=== PATIENT | male | born 1970 | race African-American/Black ===

== ENCOUNTER 2021-12-28 08:39 | Inpatient (IN) | payer SELFPAY ==
[2021-12-28] MEDS ORDERED: Morphine 4 MG/ML VIAL ONE (09:10)
[2021-12-28] MEDS ORDERED: Ondansetron PF 4 MG/2 ML Vial ONE (09:10)
[2021-12-28] MEDS ORDERED: Ketorolac Tromethamine 30 MG/ML VIAL ONE (09:11)
[2021-12-28] MEDS ORDERED: Piperacillin/Tazobactam 4.5 GM VIAL ONE (09:11)
[2021-12-28 09:40] LABS: INR-International Normal Ratio 1.1; PTT 26.8 sec (22.0-33.0); Prothrombin Time 11.5 sec (9.5-12.1)
[2021-12-28 09:45] LABS: ALT (SGPT) 11 U/L (8-55); AST (SGOT) 16 U/L (5-34); Albumin 4.1 g/dL (3.5-5.0); Alkaline Phosphatase 105 U/L (40-110); Anion Gap 15 mmol/L (10-20); BUN (Urea Nitrogen) 19 mg/dL (8.4-25.7); Bilirubin, Total 1.1 mg/dL (0.2-1.2); Calc. Creatinine Clearance 0 mL/min (70-130); Calcium 9.4 mg/dL (7.8-10.44); Carbon Dioxide 25 mmol/L (22-29); Chloride 92 mmol/L (98-107); Estimated GFR 75; Globulin 4.3 g/dL (2.4-3.5); Glucose 440 mg/dL (70-105); Potassium 4.4 mmol/L (3.5-5.1); Protein, Total 8.4 g/dL (6.0-8.3); Sodium 128 mmol/L (136-145)
[2021-12-28 10:13] LABS: #Monocytes 0.9 10x3/uL (0.0-1.1); #Neutrophils 8.5 10x3/uL (1.5-8.4); %Basophils 0.3 % (0.0-2.0); %Eosinophils 0.2 % (0.0-6.0); %Lymphocytes 16.2 % (18.0-47.0); %Monocytes 7.7 % (0.0-10.0); %Neutrophils 75.2 % (40.0-75.0); Hemoglobin 13.5 g/dL (13.5-17.5); Mean Corpuscular HGB CONC 34.6 g/dL (32.0-36.0); Mean Corpuscular Hemoglobin 25.8 pg (27.0-33.0); Mean Corpuscular Volume 74.4 fl (81.2-95.1); Mean Platelet Volume 10.5 fl (7.4-10.4); Platelet Count 265 10x3/uL (150-450); RBC Distribution Width 12.7 % (11.5-14.5); Red Blood Cell (RBC) Count 5.24 10x6/uL (4.32-5.72); White Blood Cell (WBC) Count 11.3 10x3/uL (3.5-10.5)
[2021-12-28] MEDS ORDERED: Insulin Regular 300 UNITS/3 ML VIAL SC SCH (11:00)
[2021-12-28] MEDS ORDERED: Dextrose 50% Abboject 50 ML SYRINGE SLOW IVP PRN (11:13)
[2021-12-28] MEDS ORDERED: Dextrose 5% in Water 1,000 ML IV PRN (11:13)
[2021-12-28] MEDS ORDERED: Ondansetron PF 4 MG/2 ML Vial IVP PRN (11:13)
[2021-12-28 11:52] LABS: Cardiac Risk 4.8 (Less than 4.5)
[2021-12-28] MEDS ORDERED: Enoxaparin Sodium 40 MG/0.4 ML SYRINGE SC SCH (12:15)
[2021-12-28] MEDS ORDERED: Amlodipine 5 MG TAB PO SCH (12:15)
[2021-12-28] MEDS: HumaLOG 300 UNITS/3 ML VIAL SC SCH ×2 (15:01→17:03)
[2021-12-28 15:24] VITALS: BMI 26.4
[2021-12-28] MEDS: HYDROcodone/Acetaminophen 5/325 mg Tablet PO PRN (16:48)
[2021-12-28] MEDS: Piperacillin/Tazobactam 3.375 GM in Sodium Chloride 0.9% 100 ML IVPB SCH (16:48)
[2021-12-28] MEDS: HumaLOG 300 UNITS/3 ML VIAL SC PRN (16:49)
[2021-12-28] MEDS ORDERED: FLU VACC QS2022-23(6MOS UP)/PF 60 MCG/0.5 ML SYRINGE IM ONE (17:00)
[2021-12-28] MEDS ORDERED: Vancomycin 1.5 GRAM/300 ML BAG 1.5 GM in Premix Bag 1 BAG IVPB SCH (18:00)
[2021-12-28 23:56] LABS: SARS-CoV-2 NAA Rapid Test Not Detected (NotDetected)
[2021-12-29] MEDS: Piperacillin/Tazobactam 3.375 GM in Sodium Chloride 0.9% 100 ML IVPB SCH ×3 (00:58→15:49)
[2021-12-29] MEDS: HumaLOG 300 UNITS/3 ML VIAL SC PRN ×2 (00:59→23:19)
[2021-12-29 04:16] LABS: #Eosinphils 0.1 10x3/uL (0.0-0.5); #Neutrophils 7.3 10x3/uL (1.5-8.4); %Basophils 0.3 % (0.0-2.0); %Eosinophils 0.9 % (0.0-6.0); %Lymphocytes 23.6 % (18.0-47.0); %Monocytes 9.2 % (0.0-10.0); %Neutrophils 65.6 % (40.0-75.0); Hemoglobin 12.2 g/dL (13.5-17.5); Mean Corpuscular HGB CONC 34.4 g/dL (32.0-36.0); Mean Corpuscular Hemoglobin 25.4 pg (27.0-33.0); Mean Corpuscular Volume 73.8 fl (81.2-95.1); Mean Platelet Volume 10.3 fl (7.4-10.4); Platelet Count 239 10x3/uL (150-450); RBC Distribution Width 12.9 % (11.5-14.5); Red Blood Cell (RBC) Count 4.81 10x6/uL (4.32-5.72); White Blood Cell (WBC) Count 11.1 10x3/uL (3.5-10.5)
[2021-12-29] MEDS: HYDROcodone/Acetaminophen 5/325 mg Tablet PO PRN ×3 (04:31→23:19)
[2021-12-29 04:40] LABS: ALT (SGPT) 10 U/L (8-55); AST (SGOT) 16 U/L (5-34); Albumin 3.5 g/dL (3.5-5.0); Alkaline Phosphatase 90 U/L (40-110); Anion Gap 13 mmol/L (10-20); BUN (Urea Nitrogen) 21 mg/dL (8.4-25.7); Bilirubin, Total 0.8 mg/dL (0.2-1.2); Calc. Creatinine Clearance 101 mL/min (70-130); Carbon Dioxide 25 mmol/L (22-29); Chloride 100 mmol/L (98-107); Estimated GFR 84; Globulin 3.7 g/dL (2.4-3.5); Glucose 131 mg/dL (70-105); Potassium 3.6 mmol/L (3.5-5.1); Protein, Total 7.2 g/dL (6.0-8.3); Sodium 134 mmol/L (136-145)
[2021-12-29] MEDS: Vancomycin HCl 1 GM in Sodium Chloride 0.9% 250 ML 250 ML IVPB SCH ×2 (06:15→20:48)
[2021-12-29] MEDS ORDERED: Sodium Chloride 0.9% 100 ML ONE (08:07)
[2021-12-29] MEDS ORDERED: Amlodipine 5 MG TAB PO SCH ×2 (09:00→12:45)
[2021-12-29] MEDS: Enoxaparin Sodium 40 MG/0.4 ML SYRINGE SC SCH (09:37)
[2021-12-29] MEDS: HumaLOG 300 UNITS/3 ML VIAL SC SCH ×3 (09:40→17:16)
[2021-12-29] MEDS ORDERED: metFORMIN 500 MG TAB PO SCH (13:00)
[2021-12-29] MEDS: metFORMIN 500 MG TAB PO SCH ×2 (13:18→15:50)
[2021-12-29 16:43] LABS: Hemoglobin A1c 12.4 % (4.0-6.0)
[2021-12-29] MEDS ORDERED: Sodium Chloride 0.9% 250 ML 250 ML ONE (20:25)
[2021-12-30] MEDS: Piperacillin/Tazobactam 3.375 GM in Sodium Chloride 0.9% 100 ML IVPB SCH ×3 (01:05→17:55)
[2021-12-30 05:15] LABS: #Basophils 0.1 10x3/uL (0.0-0.2); #Eosinphils 0.1 10x3/uL (0.0-0.5); #Monocytes 1.1 10x3/uL (0.0-1.1); #Neutrophils 8.7 10x3/uL (1.5-8.4); %Basophils 0.4 % (0.0-2.0); %Eosinophils 0.5 % (0.0-6.0); %Lymphocytes 17.9 % (18.0-47.0); %Monocytes 9.2 % (0.0-10.0); %Neutrophils 71.8 % (40.0-75.0); Mean Corpuscular HGB CONC 34.6 g/dL (32.0-36.0); Mean Corpuscular Hemoglobin 25.5 pg (27.0-33.0); Mean Corpuscular Volume 73.9 fl (81.2-95.1); Platelet Count 284 10x3/uL (150-450); RBC Distribution Width 12.6 % (11.5-14.5); Red Blood Cell (RBC) Count 5.09 10x6/uL (4.32-5.72); White Blood Cell (WBC) Count 12.1 10x3/uL (3.5-10.5)
[2021-12-30 05:24] LABS: Anion Gap 17 mmol/L (10-20); BUN (Urea Nitrogen) 14 mg/dL (8.4-25.7); Calc. Creatinine Clearance 120 mL/min (70-130); Calcium 8.9 mg/dL (7.8-10.44); Carbon Dioxide 24 mmol/L (22-29); Chloride 99 mmol/L (98-107); Estimated GFR 102; Glucose 121 mg/dL (70-105); Potassium 3.7 mmol/L (3.5-5.1); Sodium 136 mmol/L (136-145); Vancomycin, Trough 8.4 ug/mL
[2021-12-30] MEDS: Vancomycin 1.5 GRAM/300 ML BAG 1.5 GM in Premix Bag 1 BAG IVPB SCH ×2 (06:09→18:45)
[2021-12-30] MEDS: Enoxaparin Sodium 40 MG/0.4 ML SYRINGE SC SCH (09:06)
[2021-12-30] MEDS: Amlodipine 10 MG TAB PO SCH (09:07)
[2021-12-30] MEDS: HumaLOG 300 UNITS/3 ML VIAL SC SCH ×4 (09:08→17:54)
[2021-12-30] MEDS: metFORMIN 500 MG TAB PO SCH ×2 (09:09→17:55)
[2021-12-30] MEDS: Acetaminophen 325 MG TAB PO PRN (17:54)
[2021-12-31] MEDS: Piperacillin/Tazobactam 3.375 GM in Sodium Chloride 0.9% 100 ML IVPB SCH ×3 (00:09→16:14)
[2021-12-31] MEDS: HumaLOG 300 UNITS/3 ML VIAL SC PRN (00:44)
[2021-12-31] MEDS: Acetaminophen 325 MG TAB PO PRN ×2 (01:14→20:02)
[2021-12-31 05:39] LABS: Hemoglobin 12.9 g/dL (13.5-17.5); Mean Corpuscular HGB CONC 34.3 g/dL (32.0-36.0); Mean Corpuscular Hemoglobin 25.3 pg (27.0-33.0); Mean Corpuscular Volume 73.7 fl (81.2-95.1); Platelet Count 304 10x3/uL (150-450); RBC Distribution Width 12.5 % (11.5-14.5); White Blood Cell (WBC) Count 12.4 10x3/uL (3.5-10.5)
[2021-12-31 05:40] LABS: #Basophils 0.1 10x3/uL (0.0-0.2); #Eosinphils 0.1 10x3/uL (0.0-0.5); #Monocytes 1.2 10x3/uL (0.0-1.1); %Basophils 0.4 % (0.0-2.0); %Eosinophils 0.6 % (0.0-6.0); %Lymphocytes 17.1 % (18.0-47.0); %Monocytes 9.3 % (0.0-10.0); %Neutrophils 72.2 % (40.0-75.0); Mean Platelet Volume 9.9 fl (7.4-10.4)
[2021-12-31] MEDS ORDERED: guaiFENesin ER 600 MG TAB PO SCH (05:45)
[2021-12-31] MEDS: Vancomycin 1.5 GRAM/300 ML BAG 1.5 GM in Premix Bag 1 BAG IVPB SCH (06:44)
[2021-12-31] MEDS: metFORMIN 500 MG TAB PO SCH ×2 (09:26→16:13)
[2021-12-31] MEDS: Amlodipine 10 MG TAB PO SCH ×2 (09:29→16:03)
[2021-12-31] MEDS: Enoxaparin Sodium 40 MG/0.4 ML SYRINGE SC SCH (09:29)
[2021-12-31] MEDS: HumaLOG 300 UNITS/3 ML VIAL SC SCH ×2 (11:36→16:21)
[2021-12-31 19:35] LABS: Vancomycin, Trough 10.6 ug/mL
[2021-12-31] MEDS ORDERED: Vancomycin 1.5 GRAM/300 ML BAG 1.5 GM in Premix Bag 1 BAG IVPB SCH (20:00)
[2022-01-01] MEDS: Vancomycin 1.5 GRAM/300 ML BAG 1.5 GM in Premix Bag 1 BAG IVPB SCH ×2 (00:46→14:25)
[2022-01-01] MEDS: Piperacillin/Tazobactam 3.375 GM in Sodium Chloride 0.9% 100 ML IVPB SCH ×3 (02:30→17:25)
[2022-01-01] MEDS: HumaLOG 300 UNITS/3 ML VIAL SC SCH ×3 (09:14→17:23)
[2022-01-01] MEDS: metFORMIN 500 MG TAB PO SCH ×2 (09:16→17:22)
[2022-01-01] MEDS: Amlodipine 10 MG TAB PO SCH ×2 (09:18→12:49)
[2022-01-01] MEDS: Enoxaparin Sodium 40 MG/0.4 ML SYRINGE SC SCH (09:19)
[2022-01-01] MEDS ORDERED: Ondansetron PF 4 MG/2 ML Vial ONE (09:52)
[2022-01-01] MEDS ORDERED: Fentanyl 100 MCG/2 ML VIAL ONE (09:52)
[2022-01-01] MEDS ORDERED: PROPOFOL 20 ML ONE ×2 (09:52→10:41)
[2022-01-01] MEDS ORDERED: Lidocaine 1% PF 5 ML VIAL ONE (09:53)
[2022-01-01] MEDS: Acetaminophen 325 MG TAB PO PRN ×2 (12:50→18:45)
[2022-01-01] MEDS ORDERED: HYDROcodone/Acetaminophen 5/325 mg Tablet PO PRN ×2 (14:02)
[2022-01-02] MEDS: Acetaminophen 325 MG TAB PO PRN (00:13)
[2022-01-02] MEDS: Piperacillin/Tazobactam 3.375 GM in Sodium Chloride 0.9% 100 ML IVPB SCH ×3 (00:13→16:44)
[2022-01-02] MEDS: Vancomycin 1.5 GRAM/300 ML BAG 1.5 GM in Premix Bag 1 BAG IVPB SCH ×2 (01:08→12:31)
[2022-01-02 05:09] LABS: Anion Gap 17 mmol/L (10-20); BUN (Urea Nitrogen) 11 mg/dL (8.4-25.7); Calc. Creatinine Clearance 116 mL/min (70-130); Calcium 8.3 mg/dL (7.8-10.44); Carbon Dioxide 20 mmol/L (22-29); Chloride 100 mmol/L (98-107); Estimated GFR 99; Glucose 152 mg/dL (70-105); Potassium 3.6 mmol/L (3.5-5.1); Sodium 133 mmol/L (136-145)
[2022-01-02] MEDS: metFORMIN 500 MG TAB PO SCH ×2 (08:37→16:44)
[2022-01-02] MEDS: Amlodipine 10 MG TAB PO SCH (08:37)
[2022-01-02] MEDS: Enoxaparin Sodium 40 MG/0.4 ML SYRINGE SC SCH ×2 (08:37→09:53)
[2022-01-02] MEDS: HumaLOG 300 UNITS/3 ML VIAL SC SCH ×3 (08:38→16:44)
[2022-01-02 12:53] LABS: Vancomycin, Trough 11.7 ug/mL
[2022-01-03] MEDS: Piperacillin/Tazobactam 3.375 GM in Sodium Chloride 0.9% 100 ML IVPB SCH ×3 (03:33→19:28)
[2022-01-03] MEDS: Vancomycin 1.5 GRAM/300 ML BAG 1.5 GM in Premix Bag 1 BAG IVPB SCH ×2 (03:35→14:47)
[2022-01-03] MEDS: Oxymetazoline HCl 0.05% ( 15 ML ) NASAL PRN ×2 (07:55→21:55)
[2022-01-03] MEDS: metFORMIN 500 MG TAB PO SCH ×2 (09:10→17:32)
[2022-01-03] MEDS: Amlodipine 10 MG TAB PO SCH (09:10)
[2022-01-03] MEDS: HumaLOG 300 UNITS/3 ML VIAL SC SCH ×3 (12:18→17:31)
[2022-01-03] MEDS: Enoxaparin Sodium 40 MG/0.4 ML SYRINGE SC SCH (12:18)
[2022-01-03] MEDS: Acetaminophen 325 MG TAB PO PRN (14:52)
[2022-01-04] MEDS: Vancomycin 1.5 GRAM/300 ML BAG 1.5 GM in Premix Bag 1 BAG IVPB SCH (00:43)
[2022-01-04] MEDS: Piperacillin/Tazobactam 3.375 GM in Sodium Chloride 0.9% 100 ML IVPB SCH ×3 (00:43→10:20)
[2022-01-04 05:17] LABS: Hemoglobin 11.9 g/dL (13.5-17.5); Mean Corpuscular HGB CONC 34.6 g/dL (32.0-36.0); Mean Corpuscular Hemoglobin 25.4 pg (27.0-33.0); Mean Corpuscular Volume 73.3 fl (81.2-95.1); Mean Platelet Volume 9.4 fl (7.4-10.4); Platelet Count 329 10x3/uL (150-450); RBC Distribution Width 12.7 % (11.5-14.5); Red Blood Cell (RBC) Count 4.69 10x6/uL (4.32-5.72); White Blood Cell (WBC) Count 5.3 10x3/uL (3.5-10.5)
[2022-01-04 05:33] LABS: Anion Gap 14 mmol/L (10-20); BUN (Urea Nitrogen) 12 mg/dL (8.4-25.7); Calc. Creatinine Clearance 117 mL/min (70-130); Calcium 8.9 mg/dL (7.8-10.44); Carbon Dioxide 23 mmol/L (22-29); Chloride 99 mmol/L (98-107); Estimated GFR 101; Glucose 190 mg/dL (70-105); Potassium 4.2 mmol/L (3.5-5.1); Sodium 132 mmol/L (136-145)
[2022-01-04 07:15] LABS: MDiff Complete? YES; Platelet Morphology Comment Appears Adequate
[2022-01-04 07:18] LABS: Band 4 % (5-11); Eosinophils 2 % (0-10); Lymphocytes 27 % (21-51); Monocytes 10 % (0-10); Neutrophil 54 % (42-75); Reactive Lymphocytes 1 % (0-10)
[2022-01-04] MEDS: HumaLOG 300 UNITS/3 ML VIAL SC SCH (10:08)
[2022-01-04] MEDS: metFORMIN 500 MG TAB PO SCH (10:09)
[2022-01-04] MEDS: Enoxaparin Sodium 40 MG/0.4 ML SYRINGE SC SCH (10:09)
[2022-01-04] MEDS: Amlodipine 10 MG TAB PO SCH (10:10)
[2022-01-04 11:08] VITALS: BP 133/84; TEMP 98.5
== END 2022-01-04 11:15 | disposition home or self-care (01) | DRG 623 ==
LOC: CSHERS 08:39 → SUATTDRO 08:39 → CSHTELE 12:05
PROVIDERS: ADMIT Internal Medicine; ATTEND Family Medicine
PROC: 0JBQ0ZZ Excision of Right Foot Subcutaneous Tissue and Fascia, Open Approach (ICD-10-PCS; principal; 2022-01-01)
PROC: 0J9Q0ZZ Drainage of Right Foot Subcutaneous Tissue and Fascia, Open Approach (ICD-10-PCS; 2022-01-01)
DX: E11.621 Type 2 diabetes mellitus with foot ulcer (principal); L02.611 Cutaneous abscess of right foot; L97.419 Non-pressure chronic ulcer of right heel and midfoot with unspecified severity; L03.115 Cellulitis of right lower limb; E11.628 Type 2 diabetes mellitus with other skin complications; Z20.822 Contact with and (suspected) exposure to COVID-19; I10 Essential (primary) hypertension; E11.42 Type 2 diabetes mellitus with diabetic polyneuropathy; G51.0 Bell's palsy; M10.9 Gout, unspecified; Z79.84 Long term (current) use of oral hypoglycemic drugs; Z79.899 Other long term (current) drug therapy; Z82.49 Family history of ischemic heart disease and other diseases of the circulatory system
CPT/HCPCS: 36415; 36416; 80048; 80053; 80061; 80202; 82565; 83036; 83605; 84520; 85025; 85610; 85652; 85730; 86140; 87040; 87070; 87205; 96361; 96365; 96375; 97139; J1650; J1815; J1885; J2270; J2405; J2543; J2704; J3010; J3370; J3490; J7050; U0002

== ENCOUNTER 2022-01-19 14:50 | Outpatient (CLI) | payer OTHER | END 2022-01-19 14:51 | disposition home or self-care (01) | LOC: CSHWCC 14:50 | PROVIDERS: ATTEND Nurse Practitioner Family | DX: E11.621 Type 2 diabetes mellitus with foot ulcer (principal); L97.514 Non-pressure chronic ulcer of other part of right foot with necrosis of bone; R60.0 Localized edema | CPT/HCPCS: 99203; G0463 ==

== ENCOUNTER 2022-01-28 14:20 | Outpatient (CLI) | payer SELFPAY | END 2022-01-28 14:21 | disposition home or self-care (01) | LOC: CSHWCC 14:20 | PROVIDERS: ATTEND Nurse Practitioner Family | DX: E11.621 Type 2 diabetes mellitus with foot ulcer (principal); L97.514 Non-pressure chronic ulcer of other part of right foot with necrosis of bone; R60.0 Localized edema | CPT/HCPCS: 99213; G0463 ==